=== PATIENT | female | born 1950 | race Caucasian/White ===

== ENCOUNTER 2017-05-27 14:36 | Outpatient (RCR) | payer MEDICARE, BC ==
[2014-08-23 15:02] VITALS: BP 195/79
[~2017-05-27 14:36] MED LIST: APIDRA SQ; ASPIRIN 32325 MG/TAB PO; COREG12.5 MG PO; COZAAR50 MG PO; FUROSEMIDE20 MG PO; IBU800 M1 PO; LIPITOR40 MG PO; MAVIK4 MG PO; NITROSTAT0.4 MG SL; NORVASC 5MG5 MG/TAB PO; VITAMIN D 1001000 IU PO
== END 2017-08-25 | disposition home or self-care (01) ==
LOC: CARDREHAB
DX: Z48.812 Encounter for surgical aftercare following surgery on the circulatory system (principal); Z95.5 Presence of coronary angioplasty implant and graft; I21.4 Non-ST elevation (NSTEMI) myocardial infarction

== ENCOUNTER 2017-08-27 10:00 | Outpatient (RCR) | payer MEDICARE, BC ==
[2014-08-23 15:02] VITALS: BP 195/79
== END 2017-11-25 | disposition home or self-care (01) ==
LOC: CARDREHAB
DX: Z48.812 Encounter for surgical aftercare following surgery on the circulatory system (principal); Z95.5 Presence of coronary angioplasty implant and graft; I25.2 Old myocardial infarction

== ENCOUNTER 2017-11-27 12:00 | Outpatient (RCR) | payer MEDICARE, BC ==
[2017-12-08] MEDS ORDERED: ACETAMINOPHEN500 M5 PO (11:18)
[2017-12-08] MEDS ORDERED: ZYLOPRIM 100MG100 MG PO (11:19)
[2017-12-08] MEDS ORDERED: ASPIRIN E.C. 8181 MG PO (11:19)
[2017-12-08] MEDS ORDERED: LIPITOR 80MG80 MG PO (11:20)
[2017-12-08] MEDS ORDERED: CATAPRES 0.1MG0.1 MG (11:22)
[2017-12-08] MEDS ORDERED: CLOPIDOGREL PO (11:23)
[2017-12-08] MEDS ORDERED: ZETIA10 M1 PO (11:23)
[2017-12-08] MEDS ORDERED: HYDROCORTISONE2.51 RC (11:26)
[2017-12-08] MEDS ORDERED: FLUOCINONIDE (11:26)
[2017-12-08] MEDS ORDERED: PURE & GENTLE 115 ML OP (11:27)
[2017-12-08] MEDS ORDERED: APIDRA100 UNIT/1 SQ (11:27)
[2017-12-08] MEDS ORDERED: TIROSINT75 MC1 PO (11:28)
[2017-12-08] MEDS ORDERED: COZAAR25 M1 PO (11:28)
[2017-12-08] MEDS ORDERED: NITROSTAT0.4 M1 SL (11:28)
[2017-12-08] MEDS ORDERED: ISOSORBIDE MONO60 M2 PO (11:28)
[2017-12-08] MEDS ORDERED: GOOD NEIGHBOR P44 ML NS (11:29)
[2017-12-08] MEDS ORDERED: PERCOCET 325 MG1 TA2 PO (11:29)
[2017-12-08] MEDS ORDERED: PROTOPIC 0.1% O30 GM TP (11:29)
[2017-12-08] MEDS ORDERED: VITAMIN D32000 IU PO (11:30)
[2017-12-08] MEDS ORDERED: KENALOG 60 ML60 M1 TP (11:30)
[2017-12-08] MEDS ORDERED: TORSEMIDE100 MG PO (11:30)
[2017-12-08] MEDS ORDERED: ICY HOT1 EACH TP (11:31)
[2017-12-08 14:15] VITALS: BP 164/78
== END 2018-02-17 11:20 | disposition home or self-care (01) ==
LOC: CARDREHAB 12:00
DX: Z48.812 Encounter for surgical aftercare following surgery on the circulatory system (principal); Z95.5 Presence of coronary angioplasty implant and graft; I25.2 Old myocardial infarction

== ENCOUNTER 2017-12-08 10:04 | Emergency (ER) | payer MEDICARE, BC ==
[~2017-12-08] VITALS: Ht 167.6 cm; Wt 105.0 kg
[2017-12-08 10:53] LABS: EOS # 0.2 (0.04-0.40); EOS % 2.8 % (1.0-5.0); HEMATOCRIT 33.4 % (37.0-47.0); HEMOGLOBIN 10.8 g/dL (12.5-16.0); LYMPH# 1.3 (1.50-4.00); MEAN CELL VOLUME 93 fl (78-100); MEAN CORPUSCULAR HEMOGLOBIN 30 pg (27-31); MEAN CORPUSCULAR HGB CONC 32 g/dL (33-37); MEAN PLATELET VOLUME 10.7 fl (7.4-10.4); MONO # 0.4 (0.20-0.80); NEU # 5.9 (1.40-6.50); PLATELET COUNT 231 K/mm3 (130-400); RED BLOOD COUNT 3.58 M/mm3 (4.10-5.30); RED CELL DISTRIBUTION WIDTH 14.7 % (11.5-14.5)
[2017-12-08 11:06] LABS: ALBUMIN 3.4 g/dL (3.5-5.0); BUN/CREATININE RATIO 17.6 (6.0-26.0); CALCIUM 8.9 mg/dL (8.4-10.2); POTASSIUM 3.5 mmol/L (3.6-5.0); TOTAL BILIRUBIN 0.4 mg/dL (0.2-1.3); TOTAL PROTEIN 6.7 g/dL (6.3-8.2)
[2017-12-08 11:18] LABS: TROPONIN-I < 0.03 ng/mL (0.00-0.06)
[2017-12-08] MEDS ORDERED: ACETAMINOPHEN500 M5 PO (11:18)
[2017-12-08 11:19] LABS: PROTHROMBIN TIME 9.8 SECONDS (9.0-12.0)
[2017-12-08] MEDS ORDERED: ASPIRIN E.C. 8181 MG PO (11:19)
[2017-12-08] MEDS ORDERED: ZYLOPRIM 100MG100 MG PO (11:19)
[2017-12-08] MEDS ORDERED: LIPITOR 80MG80 MG PO (11:20)
[2017-12-08 11:22] LABS: D-DIMER 0.81 mg/L FEU (0.15-0.50)
[2017-12-08] MEDS ORDERED: CATAPRES 0.1MG0.1 MG (11:22)
[2017-12-08] MEDS ORDERED: CLOPIDOGREL PO (11:23)
[2017-12-08] MEDS ORDERED: ZETIA10 M1 PO (11:23)
[2017-12-08] MEDS ORDERED: FLUOCINONIDE (11:26)
[2017-12-08] MEDS ORDERED: HYDROCORTISONE2.51 RC (11:26)
[2017-12-08] MEDS ORDERED: APIDRA100 UNIT/1 SQ (11:27)
[2017-12-08] MEDS ORDERED: PURE & GENTLE 115 ML OP (11:27)
[2017-12-08] MEDS ORDERED: COZAAR25 M1 PO (11:28)
[2017-12-08] MEDS ORDERED: TIROSINT75 MC1 PO (11:28)
[2017-12-08] MEDS ORDERED: NITROSTAT0.4 M1 SL (11:28)
[2017-12-08] MEDS ORDERED: ISOSORBIDE MONO60 M2 PO (11:28)
[2017-12-08] MEDS ORDERED: GOOD NEIGHBOR P44 ML NS (11:29)
[2017-12-08] MEDS ORDERED: PROTOPIC 0.1% O30 GM TP (11:29)
[2017-12-08] MEDS ORDERED: PERCOCET 325 MG1 TA2 PO (11:29)
[2017-12-08] MEDS ORDERED: VITAMIN D32000 IU PO (11:30)
[2017-12-08] MEDS ORDERED: KENALOG 60 ML60 M1 TP (11:30)
[2017-12-08] MEDS ORDERED: TORSEMIDE100 MG PO (11:30)
[2017-12-08] MEDS ORDERED: ICY HOT1 EACH TP (11:31)
[2017-12-08 12:04] LABS: URINE APPEARANCE CLEAR; URINE BILIRUBIN NEGATIVE (NEGATIVE); URINE BLOOD TRACE (NEGATIVE); URINE COLOR YELLOW; URINE GLUCOSE NEGATIVE (NEGATIVE); URINE KETONE NEGATIVE (NEGATIVE); URINE LEUKOCYTE ESTERASE NEGATIVE (NEGATIVE); URINE NITRATE NEGATIVE (NEGATIVE); URINE PROTEIN(semi-quant) 3+ mg/dL (NEGATIVE); URINE UROBILINOGEN NORMAL (NORMAL)
[2017-12-08 14:15] VITALS: BP 164/78
== END 2017-12-08 14:15 | disposition home or self-care (01) ==
LOC: ED 10:04
PROVIDERS: Nurse Practitioner Primary Care
DX: I11.0 Hypertensive heart disease with heart failure (principal); I50.9 Heart failure, unspecified; E11.9 Type 2 diabetes mellitus without complications; Z79.4 Long term (current) use of insulin; I25.2 Old myocardial infarction; Z79.82 Long term (current) use of aspirin; Z79.02 Long term (current) use of antithrombotics/antiplatelets; E78.5 Hyperlipidemia, unspecified; Z95.5 Presence of coronary angioplasty implant and graft; F41.9 Anxiety disorder, unspecified; R00.1 Bradycardia, unspecified; R14.0 Abdominal distension (gaseous); Z88.1 Allergy status to other antibiotic agents; Z88.5 Allergy status to narcotic agent; Z88.0 Allergy status to penicillin; Z88.2 Allergy status to sulfonamides; Z88.8 Allergy status to other drugs, medicaments and biological substances
CPT/HCPCS: J1940

== ENCOUNTER 2018-03-02 09:15 | Emergency (ER) | payer MEDICARE, BC ==
[~2018-03-02] VITALS: Wt 102.5 kg
[~2018-03-02 09:15] MED LIST changes: +ACETAMINOPHEN500 M5 PO; +APIDRA100 UNIT/1 SQ; +ASPIRIN E.C. 8181 MG PO; +CATAPRES0.2 M1 PO; +CLOPIDOGREL PO; +COZAAR25 M1 PO; +FLUOCINONIDE; +GOOD NEIGHBOR P44 ML NS; +HYDROCORTISONE2.51 RC; +ICY HOT1 EACH TP; +ISOSORBIDE MONO60 M2 PO; +KENALOG 60 ML60 M1 TP; +LIPITOR 80MG80 MG PO; +NITROSTAT0.4 M1 SL; +PERCOCET 325 MG1 TA2 PO; +PROTOPIC 0.1% O30 GM TP; +PURE & GENTLE 115 ML OP; +TIROSINT75 MC1 PO; +TORSEMIDE100 MG PO; +VITAMIN D32000 IU PO; +ZETIA10 M1 PO; +ZYLOPRIM 100MG100 MG PO
[2018-03-02 09:37] LABS: EOS # 0.3 (0.04-0.40); EOS % 3.8 % (1.0-5.0); HEMATOCRIT 41.6 % (37.0-47.0); LYMPH# 1.5 (1.50-4.00); MEAN CELL VOLUME 95 fl (78-100); MEAN CORPUSCULAR HEMOGLOBIN 30 pg (27-31); MEAN CORPUSCULAR HGB CONC 31 g/dL (33-37); MEAN PLATELET VOLUME 10.4 fl (7.4-10.4); MONO # 0.6 (0.20-0.80); NEU # 6.3 (1.40-6.50); PLATELET COUNT 273 K/mm3 (130-400); RED BLOOD COUNT 4.38 M/mm3 (4.10-5.30); WHITE BLOOD COUNT 8.8 K/mm3 (4.8-10.8)
[2018-03-02] MEDS ORDERED: ALDACTONE 25MG25 MG PO (09:54)
[2018-03-02] MEDS ORDERED: D3-5000 90 MG-51 TAB PO (09:56)
[2018-03-02] MEDS ORDERED: COLACE100 M1 PO (09:57)
[2018-03-02] MEDS ORDERED: EZETIMIBE10 M1 PO (09:57)
[2018-03-02 09:59] LABS: ALBUMIN 4.1 g/dL (3.5-5.0); BUN/CREATININE RATIO 14.3 (6.0-26.0); CALCIUM 9.5 mg/dL (8.4-10.2); POTASSIUM 4.1 mmol/L (3.6-5.0); TOTAL BILIRUBIN 0.6 mg/dL (0.2-1.3)
[2018-03-02 10:06] LABS: CKMB ISOENZYME 1.5 ng/mL (0.6-3.5)
[2018-03-02] MEDS ORDERED: APIDRA100 UNIT/1 SQ (10:07)
[2018-03-02 10:11] LABS: D-DIMER 0.64 mg/L FEU (0.15-0.50); TROPONIN-I < 0.03 ng/mL (0.00-0.06)
[2018-03-02 10:29] LABS: URINE APPEARANCE CLEAR; URINE BILIRUBIN NEGATIVE (NEGATIVE); URINE BLOOD TRACE (NEGATIVE); URINE COLOR YELLOW; URINE GLUCOSE NEGATIVE (NEGATIVE); URINE KETONE NEGATIVE (NEGATIVE); URINE LEUKOCYTE ESTERASE NEGATIVE (NEGATIVE); URINE NITRATE NEGATIVE (NEGATIVE); URINE PROTEIN(semi-quant) 3+ mg/dL (NEGATIVE); URINE UROBILINOGEN NORMAL (NORMAL)
[2018-03-02 10:30] LABS: URINE MUCUS PRESENT (NOT PRESENT)
[2018-03-02 11:04] VITALS: BP 164/92
== END 2018-03-02 11:20 | disposition short-term general hospital (02) ==
LOC: ED 09:15
PROVIDERS: Physician Assistant
DX: I13.0 Hypertensive heart and chronic kidney disease with heart failure and stage 1 through stage 4 chronic kidney disease, or unspecified chronic kidney disease (principal); I50.9 Heart failure, unspecified; R06.03 Acute respiratory distress; N18.4 Chronic kidney disease, stage 4 (severe); E11.22 Type 2 diabetes mellitus with diabetic chronic kidney disease; Z79.82 Long term (current) use of aspirin; Z79.02 Long term (current) use of antithrombotics/antiplatelets; Z79.4 Long term (current) use of insulin; I25.2 Old myocardial infarction; Z95.5 Presence of coronary angioplasty implant and graft; Z87.891 Personal history of nicotine dependence; R79.89 Other specified abnormal findings of blood chemistry
CPT/HCPCS: J1940; J2060

== ENCOUNTER 2018-03-26 21:33 | Emergency (ER) | payer MEDICARE, BC ==
[~2018-03-26] VITALS: Ht 167.6 cm; Wt 98.2 kg
[~2018-03-26 21:33] MED LIST changes: +ALDACTONE 25MG25 MG PO; +COLACE100 M1 PO; +D3-5000 90 MG-51 TAB PO; +EZETIMIBE10 M1 PO
[2018-03-26 22:09] LABS: HEMATOCRIT 38.4 % (37.0-47.0); HEMOGLOBIN 12.8 g/dL (12.5-16.0); MEAN CELL VOLUME 91 fl (78-100); MEAN CORPUSCULAR HEMOGLOBIN 30 pg (27-31); MEAN CORPUSCULAR HGB CONC 33 g/dL (33-37); MEAN PLATELET VOLUME 10.4 fl (7.4-10.4); PLATELET COUNT 272 K/mm3 (130-400); RED BLOOD COUNT 4.21 M/mm3 (4.10-5.30); RED CELL DISTRIBUTION WIDTH 14.2 % (11.5-14.5); WHITE BLOOD COUNT 13.4 K/mm3 (4.8-10.8)
[2018-03-26 22:26] LABS: CKMB ISOENZYME 1.2 ng/mL (0.6-3.5); TROPONIN-I < 0.03 ng/mL (0.00-0.06)
[2018-03-26] MEDS ORDERED: NORVASC 10MG10 MG PO (22:26)
[2018-03-26 22:34] LABS: LYMPHOCYTE 10 % (20-51); MONOCYTE 2 % (3-10); NEUTROPHILS 86 % (42-75)
[2018-03-26 22:38] LABS: ALBUMIN 3.9 g/dL (3.5-5.0); BUN/CREATININE RATIO 17.7 (6.0-26.0); CALCIUM 9.6 mg/dL (8.4-10.2); POTASSIUM 5.2 mmol/L (3.6-5.0); TOTAL BILIRUBIN 0.5 mg/dL (0.2-1.3); TOTAL PROTEIN 7.5 g/dL (6.3-8.2)
[2018-03-26 23:26] LABS: URINE APPEARANCE CLOUDY; URINE COLOR YELLOW
[2018-03-26 23:27] LABS: URINE BILIRUBIN NEGATIVE (NEGATIVE); URINE BLOOD TRACE (NEGATIVE); URINE GLUCOSE 50 mg/dL mg/dL (NEGATIVE); URINE KETONE 1+ (NEGATIVE); URINE LEUKOCYTE ESTERASE TRACE (NEGATIVE); URINE MUCUS PRESENT (NOT PRESENT); URINE NITRATE NEGATIVE (NEGATIVE); URINE PROTEIN(semi-quant) 3+ mg/dL (NEGATIVE); URINE UROBILINOGEN NORMAL (NORMAL)
[2018-03-27 01:05] VITALS: BP 145/78
== END 2018-03-27 01:05 | disposition short-term general hospital (02) ==
LOC: ED 21:33
PROVIDERS: Physician Assistant
DX: E11.22 Type 2 diabetes mellitus with diabetic chronic kidney disease (principal); I13.0 Hypertensive heart and chronic kidney disease with heart failure and stage 1 through stage 4 chronic kidney disease, or unspecified chronic kidney disease; N18.4 Chronic kidney disease, stage 4 (severe); I50.9 Heart failure, unspecified; I25.2 Old myocardial infarction; Z79.4 Long term (current) use of insulin; R00.1 Bradycardia, unspecified; E87.5 Hyperkalemia; E86.0 Dehydration; N39.0 Urinary tract infection, site not specified; I25.10 Atherosclerotic heart disease of native coronary artery without angina pectoris; R19.7 Diarrhea, unspecified; Z95.5 Presence of coronary angioplasty implant and graft; Z87.891 Personal history of nicotine dependence; R07.89 Other chest pain; Z79.02 Long term (current) use of antithrombotics/antiplatelets; Z79.82 Long term (current) use of aspirin; Z79.899 Other long term (current) drug therapy; Z90.5 Acquired absence of kidney
CPT/HCPCS: J2405; J2550; J7030

== ENCOUNTER 2019-07-27 15:12 | Emergency (ER) | payer MEDICARE, BC ==
[~2019-07-27] VITALS: Ht 165.1 cm; Wt 97.3 kg
[~2019-07-27 15:12] MED LIST changes: +NORVASC 10MG10 MG PO
[2019-07-27] MEDS ORDERED: HYDRALAZINE HYD50 MG PO (15:23)
[2019-07-27] MEDS ORDERED: DOXYCYCLINE MO100 M3 PO (15:23)
[2019-07-27] MEDS ORDERED: TORSEMIDE100 MG PO (15:23)
[2019-07-27 15:43] LABS: EOS # 0.3 (0.04-0.40); EOS % 3.7 % (1.0-5.0); HEMATOCRIT 33.9 % (37.0-47.0); HEMOGLOBIN 11.1 g/dL (12.5-16.0); LYMPH# 1.2 (1.50-4.00); MEAN CELL VOLUME 96 fl (78-100); MEAN CORPUSCULAR HEMOGLOBIN 31 pg (27-31); MEAN CORPUSCULAR HGB CONC 33 g/dL (33-37); MEAN PLATELET VOLUME 10.1 fl (7.4-10.4); MONO # 0.6 (0.20-0.80); PLATELET COUNT 236 K/mm3 (130-400); RED BLOOD COUNT 3.54 M/mm3 (4.10-5.30); WHITE BLOOD COUNT 8.1 K/mm3 (4.8-10.8)
[2019-07-27] MEDS ORDERED: ATORVASTATIN CA80 MG PO (15:52)
[2019-07-27] MEDS ORDERED: CARVEDILOL25 MG PO (15:52)
[2019-07-27 15:55] LABS: ALBUMIN 3.9 g/dL (3.4-4.8); CALCIUM 9.8 mg/dL (8.3-10.5); POTASSIUM 4.5 mmol/L (3.5-5.1); SODIUM 138 mmol/L (136-145)
[2019-07-27 15:56] LABS: GLUCOSE 110 mg/dL (65-105); TOTAL PROTEIN 7.1 g/dL (6.2-8.1)
[2019-07-27 15:57] LABS: CARBON DIOXIDE 21 mmol/L (23-31)
[2019-07-27 16:01] LABS: AST-SGOT 12 U/L (5-34)
[2019-07-27 16:02] LABS: ALT/SGPT 17 U/L (0-55)
[2019-07-27 16:11] LABS: TOTAL BILIRUBIN 0.5 mg/dL (0.2-1.2); TROPONIN-I < 0.03 ng/mL (<0.030)
[2019-07-27 16:46] VITALS: BP 149/64
== END 2019-07-27 16:44 | disposition home or self-care (01) ==
LOC: ED 15:12
PROVIDERS: Nurse Practitioner Family
DX: E83.52 Hypercalcemia (principal); E10.22 Type 1 diabetes mellitus with diabetic chronic kidney disease; N18.6 End stage renal disease; I25.10 Atherosclerotic heart disease of native coronary artery without angina pectoris; I25.2 Old myocardial infarction; I11.0 Hypertensive heart disease with heart failure; I50.9 Heart failure, unspecified; Z79.4 Long term (current) use of insulin; J43.9 Emphysema, unspecified; E03.9 Hypothyroidism, unspecified; G47.33 Obstructive sleep apnea (adult) (pediatric); I73.9 Peripheral vascular disease, unspecified; Z98.890 Other specified postprocedural states; Z96.22 Myringotomy tube(s) status; Z87.891 Personal history of nicotine dependence

== ENCOUNTER 2019-10-25 19:25 | Emergency (ER) | payer MEDICARE, BC ==
[~2019-10-25] VITALS: Ht 167.6 cm; Wt 91.6 kg
[~2019-10-25 19:25] MED LIST changes: +ATORVASTATIN CA80 MG PO; +CARVEDILOL25 MG PO; +DOXYCYCLINE MO100 M3 PO; +HYDRALAZINE HYD50 MG PO
[2019-10-25] MEDS ORDERED: SINGULAIR PO (20:11)
[2019-10-25] MEDS ORDERED: COREG 6.256.25 MG/TA PO (20:11)
[2019-10-25] MEDS ORDERED: REGLAN5 M1 PO (20:12)
[2019-10-25] MEDS ORDERED: NITROSTAT0.4 M1 SL (20:13)
[2019-10-25 20:25] VITALS: BP 130/45
== END 2019-10-25 20:25 | disposition home or self-care (01) ==
LOC: ED 19:25
DX: T85.838A Hemorrhage due to other internal prosthetic devices, implants and grafts, initial encounter (principal); S31.139A Puncture wound of abdominal wall without foreign body, unspecified quadrant without penetration into peritoneal cavity, initial encounter; E10.22 Type 1 diabetes mellitus with diabetic chronic kidney disease; N18.9 Chronic kidney disease, unspecified; Z79.02 Long term (current) use of antithrombotics/antiplatelets; Z79.82 Long term (current) use of aspirin; Z87.891 Personal history of nicotine dependence; Z99.2 Dependence on renal dialysis; Y82.8 Other medical devices associated with adverse incidents

== ENCOUNTER 2021-03-01 20:47 | Emergency (ER) | payer MEDICARE, BC ==
[~2021-03-01 20:47] MED LIST changes: +COREG 6.256.25 MG/TA PO; +REGLAN5 M1 PO; +SINGULAIR PO
[2021-03-01 21:29] LABS: BASO # 0.06 (0.02-0.10); EOS # 0.06 (0.04-0.40); EOS % 0.4 % (1.0-5.0); HEMATOCRIT 26.9 % (37.0-47.0); HEMOGLOBIN 8.8 g/dL (12.5-16.0); LYMPH# 0.79 (1.50-4.00); MEAN CELL VOLUME 103 fl (78-100); MEAN CORPUSCULAR HEMOGLOBIN 34 pg (27-31); MEAN CORPUSCULAR HGB CONC 33 g/dL (33-37); MEAN PLATELET VOLUME 10.3 fl (7.4-10.4); MONO # 0.47 (0.20-0.80); NEU # 12.69 (1.40-6.50); PLATELET COUNT 260 K/mm3 (130-400); RED BLOOD COUNT 2.62 M/mm3 (4.10-5.30); RED CELL DISTRIBUTION WIDTH 14.4 % (11.5-14.5); WHITE BLOOD COUNT 14.2 K/mm3 (4.8-10.8)
[2021-03-01 21:38] LABS: ALBUMIN 3.6 g/dL (3.4-4.8); POTASSIUM 3.9 mmol/L (3.5-5.1)
[2021-03-01 21:39] LABS: CALCIUM 9.7 mg/dL (8.3-10.5)
[2021-03-01 21:40] LABS: TOTAL PROTEIN 6.4 g/dL (6.2-8.1)
[2021-03-01 21:42] LABS: TOTAL BILIRUBIN 0.4 mg/dL (0.2-1.2)
[2021-03-01] MEDS ORDERED: ZYLOPRIM 100MG100 MG PO (21:45)
[2021-03-01] MEDS ORDERED: APIDRA100 UNIT/1 SQ (21:47)
[2021-03-01] MEDS ORDERED: CALCIUM ACETAT667 MG PO (21:48)
[2021-03-01] MEDS ORDERED: CLONIDINE HYDR0.1 MG PO (21:49)
[2021-03-01] MEDS ORDERED: LOSARTAN POTASS25 MG PO (21:51)
[2021-03-01 21:53] LABS: TROPONIN-I 0.24 ng/mL (<0.030)
[2021-03-02 00:05] VITALS: BP 131/71
== END 2021-03-02 00:05 | disposition short-term general hospital (02) ==
LOC: ED 20:47
PROVIDERS: Nurse Practitioner Family
DX: R10.84 Generalized abdominal pain (principal); I13.0 Hypertensive heart and chronic kidney disease with heart failure and stage 1 through stage 4 chronic kidney disease, or unspecified chronic kidney disease; R74.8 Abnormal levels of other serum enzymes; D72.829 Elevated white blood cell count, unspecified; E10.22 Type 1 diabetes mellitus with diabetic chronic kidney disease; N18.9 Chronic kidney disease, unspecified; E10.43 Type 1 diabetes mellitus with diabetic autonomic (poly)neuropathy; K31.84 Gastroparesis; E10.51 Type 1 diabetes mellitus with diabetic peripheral angiopathy without gangrene; K21.9 Gastro-esophageal reflux disease without esophagitis; Z95.9 Presence of cardiac and vascular implant and graft, unspecified; Z99.2 Dependence on renal dialysis; Z90.710 Acquired absence of both cervix and uterus; Z87.891 Personal history of nicotine dependence; Z79.82 Long term (current) use of aspirin; Z79.02 Long term (current) use of antithrombotics/antiplatelets; Z79.899 Other long term (current) drug therapy; Z20.822 Contact with and (suspected) exposure to COVID-19
CPT/HCPCS: J2270; J2405; J7030

== ENCOUNTER 2021-08-06 16:12 | Emergency (ER) | payer MEDICARE, BC ==
[~2021-08-06 16:12] MED LIST changes: +CALCIUM ACETAT667 MG PO; +CLONIDINE HYDR0.1 MG PO; +LOSARTAN POTASS25 MG PO
== END 2021-08-06 19:01 | disposition expired ==
LOC: ED 16:12